=== PATIENT | female | born 1965 | race Hispanic/Latino ===

== ENCOUNTER 2022-06-13 13:34 | Emergency (ER) | payer OTHER, SELFPAY ==
[~2022-06-13] VITALS: Ht 152.4 cm; Wt 93.4 kg
[2022-06-13 14:26] LABS: BASOPHILS % (AUTO) 0.6 % (0.0-5.0); EOSINOPHILS % (AUTO) 5.8 % (0.0-8.0); HEMATOCRIT 45.2 % (36-48); LYMPHOCYTES % (AUTO) 32.2 % (21.0-51.0); MEAN CORPUSCULAR HEMOGLOBIN 29.2 pg (27.0-33.0); MEAN CORPUSCULAR HGB CONC 32.5 g/dL (32.0-36.0); MEAN CORPUSCULAR VOLUME 89.7 fL (79-99); MONOCYTES % (AUTO) 5.5 % (3.0-13.0); NEUTROPHILS % (AUTO) 55.7 % (40.0-77.0); PLATELET COUNT (AUTO) 309 K/uL (130-400); RED BLOOD CELL COUNT(AUTO) 5.04 MIL/uL (4.00-5.50); WHITE BLOOD COUNT (AUTO) 8.9 K/uL (4.8-10.8)
[2022-06-13 14:53] LABS: CREATININE 0.9 mg/dL (0.5-1.5); POTASSIUM 3.7 mmol/L (3.5-5.1)
[2022-06-13 14:57] LABS: ALBUMIN 3.6 g/dL (3.5-5.0); TOTAL PROTEIN, SERUM 7.6 g/dL (6.0-8.3)
[2022-06-13 16:25] VITALS: BP 180/100
[2022-06-13] MEDS ORDERED: KETOROLAC 30MG VIAL (30MG/ML) IM ONE (17:30)
== END 2022-06-13 17:46 | disposition home or self-care (01) ==
LOC: EDH 13:34
DX: C56.2 Malignant neoplasm of left ovary (principal); I10 Essential (primary) hypertension
CPT/HCPCS: 99285; 76856; 80053; 85025; 36415; 96372; 93005; J1885